=== PATIENT | male | born 1955 | race Caucasian/White ===

== ENCOUNTER 2021-11-29 16:20 | Emergency (ER) | payer MEDICARE ==
[~2021-11-29] VITALS: Ht 182.9 cm; Wt 109.1 kg
[2021-11-29] MEDS ORDERED: SEROQUEL 1100 MG/TAB PO (16:33)
[2021-11-29] MEDS ORDERED: COZAAR100 MG PO (16:34)
[2021-11-29] MEDS ORDERED: PRAVACHOL 40MG40 MG PO (16:34)
[2021-11-29] MEDS ORDERED: GLUCOPHAGE1000 MG PO (16:36)
[2021-11-29 16:49] LABS: HEMATOCRIT 42.7 % (42.0-52.0); HEMOGLOBIN 15.2 g/dl (13.5-18.0); MEAN CELL VOLUME 85 fl (80.0-100.0); MEAN CORPUSCULAR HEMOGLOBIN 30 pg (27-31); MEAN CORPUSCULAR HGB CONC 36 g/dl (33.0-37.0); MEAN PLATELET VOLUME 10.8 fl (7.4-10.4); PLATELET COUNT 197 K/mm3 (130-400); RED BLOOD COUNT 5.03 M/mm3 (4.20-5.60); REDCELL DISTRIBUTION WIDTH-CV 12.5 % (11.5-14.5)
[2021-11-29 17:06] LABS: ALBUMIN 3.8 gm/dL (3.4-4.8); BILIRUBIN,TOTAL 0.7 mg/dL (0.2-1.2); CALCIUM 9.2 mg/dL (8.4-10.2); CREATININE, serum 1.04 mg/dL (0.72-1.25); POTASSIUM 4.5 mmol/L (3.5-4.5)
[2021-11-29 17:07] LABS: BAND 3 % (0-10); BASOPHIL 1 % (0-2); EOSINOPHIL 1 % (0-4); LYMPHOCYTE 28 % (20.0-51.0); NEUTROPHILS 62 % (42.0-75.2); PLATELET ESTIMATE NORMAL (NORMAL)
[2021-11-29 17:09] LABS: TOXIC GRANULATION PRESENT
[2021-11-29 18:08] LABS: COLLECTION METHOD CLEAN CATCH
[2021-11-29] MEDS ORDERED: AMOXICILLIN 8751 TAB PO (18:19)
[2021-11-29 18:32] LABS: MUCOUS Present (NOT PRESENT); PH 5 (5-8); SQUAMOUS EPITHELIAL None Seen /hpf (0-10); URINE APPEARANCE Clear (CLEAR/HAZY); URINE BACTERIA None Seen /hpf (NONE SEEN); URINE BILIRUBIN Negative (NEGATIVE); URINE BLOOD Negative (NEGATIVE); URINE COLOR Yellow (YELLOW); URINE GLUCOSE 3+ (NEGATIVE); URINE KETONE 1+ (NEGATIVE); URINE LEUKOCYTE ESTERASE Negative (NEGATIVE); URINE NITRATE Negative (NEGATIVE); URINE PROTEIN(semi-quant) Negative (NEGATIVE); URINE RBC 0-2 /hpf (0-2); URINE UROBILINOGEN Negative (NEGATIVE)
[2021-11-29 19:00] VITALS: BP 180/104; PULSE 55; TEMP 98
--- NOTE | 2021-11-30 08:59 | NUR ---
The patient notified ED staff that he is unable to afford his insulin. SW attempted to contact the patient with the number on file to address this. SW left him a voicemail.
== END 2021-11-29 19:00 | disposition home or self-care (01) ==
LOC: COL.ER 16:20
PROVIDERS: Emergency Medicine
DX: E11.65 Type 2 diabetes mellitus with hyperglycemia (principal); Z20.822 Contact with and (suspected) exposure to COVID-19; Z79.84 Long term (current) use of oral hypoglycemic drugs; Z79.1 Long term (current) use of non-steroidal anti-inflammatories (NSAID); Z79.891 Long term (current) use of opiate analgesic
CPT/HCPCS: J7120; Q9967

== ENCOUNTER 2022-01-15 22:04 | Emergency (ER) | payer MEDICARE ==
[~2022-01-15] VITALS: Ht 185.4 cm; Wt 106.8 kg
[~2022-01-15 22:04] MED LIST: AMOXICILLIN 8751 TAB PO; COZAAR100 MG PO; GLUCOPHAGE1000 MG PO; PRAVACHOL 40MG40 MG PO; SEROQUEL 1100 MG/TAB PO
[2022-01-15 22:10] VITALS: TEMP 98
[2022-01-15] MEDS ORDERED: VISTARIL 2525 MG/CAP PO (22:15)
[2022-01-15] MEDS ORDERED: DEPAKOTE ER 50500 MG PO (22:15)
[2022-01-15 22:49] LABS: HEMATOCRIT 41.6 % (42.0-52.0); HEMOGLOBIN 14.6 g/dl (13.5-18.0); MEAN CELL VOLUME 82 fl (80.0-100.0); MEAN CORPUSCULAR HEMOGLOBIN 29 pg (27-31); MEAN CORPUSCULAR HGB CONC 35 g/dl (33.0-37.0); MEAN PLATELET VOLUME 10.9 fl (7.4-10.4); PLATELET COUNT 215 K/mm3 (130-400); RED BLOOD COUNT 5.07 M/mm3 (4.20-5.60); REDCELL DISTRIBUTION WIDTH-CV 12.7 % (11.5-14.5)
[2022-01-15 23:00] LABS: ALANINE AMINOTRANSFERASE 20 U/L (0-55); ALBUMIN 3.7 gm/dL (3.4-4.8); ALKALINE PHOSPHATASE 161 U/L (40-150); ANION GAP 12 mmol/L (7-16); AST,SGOT 15 U/L (5-34); BILIRUBIN,TOTAL 0.7 mg/dL (0.2-1.2); BLOOD UREA NITROGEN 29 mg/dL (8-26); CALCIUM 8.9 mg/dL (8.4-10.2); CARBON DIOXIDE 21 mmol/L (23-31); CHLORIDE 93 mmol/L (98-107); CREATININE, serum 1.38 mg/dL (0.72-1.25); POTASSIUM 4.5 mmol/L (3.5-4.5); SODIUM 126 mmol/L (136-145); TOTAL PROTEIN 6.7 gm/dL (6.2-8.1)
[2022-01-15 23:06] LABS: GLUCOSE 728 mg/dL (70-99)
[2022-01-15 23:08] LABS: TROPONIN-I < 0.010 ng/mL (0.00-0.033)
[2022-01-15 23:44] LABS: BASOPHIL 3 % (0-2); EOSINOPHIL 3 % (0-4); LYMPHOCYTE 17 % (20.0-51.0); MYELOCYTE 1 % (0-0); NEUTROPHILS 71 % (42.0-75.2)
[2022-01-16] MEDS ORDERED: DOXYCYCLINE 10100 MG PO (01:11)
[2022-01-16 01:26] VITALS: BP 95/68; PULSE 70
== END 2022-01-16 01:26 | disposition home or self-care (01) ==
LOC: COL.ER 22:04
PROVIDERS: Emergency Medicine
DX: R73.9 Hyperglycemia, unspecified (principal); D72.829 Elevated white blood cell count, unspecified; F31.9 Bipolar disorder, unspecified; Z88.1 Allergy status to other antibiotic agents; Z79.899 Other long term (current) drug therapy
CPT/HCPCS: J1815; J7120

== ENCOUNTER → 2022-01-21 | Outpatient (CLI) | payer MEDICARE ==
[~2022-01-21] MED LIST changes: +AMOXICILLIN875 MG PO; +ASPIRIN E.C. 8181 MG PO; +CIPRODEX OT; +CRESTOR 10MG10 MG PO; +DEPAKOTE ER 50500 MG PO; +DOXYCYCLINE 10100 MG; +DOXYCYCLINE 10100 MG PO; +JARDIANCE25; +LANTUS SOLOS100 U/ML SQ; +LIPITOR 40MG TA40 MG; +LIPITOR 40MG TA40 MG PO; +LIPITOR 80MG80 MG PO; +PLAVIX 75MG TAB75 MG PO; +SEROQUEL300 MG PO; +TOPROL XL 25MG25 MG PO; +VISTARIL 2525 MG/CAP PO; +WELLBUTRIN 75MG75 MG PO
[2022-01-28] VITALS (201 sets, daily range): O2SAT 90–100
== END ==
LOC: ZCOL.LAB 15:43
DX: H92.11 Otorrhea, right ear (principal)

== ENCOUNTER 2022-01-27 01:02 | Observation (INO) | payer MEDICARE ==
[2022-01-27] VITALS (955 sets, daily range): BP systolic 114–145; BP diastolic 76–93; PULSE 78–85; TEMP 97.9–98.5; O2SAT 92–100
[~2022-01-27] VITALS: Ht 182.9 cm; Wt 106.9 kg
[~2022-01-27 01:02] MED LIST changes: -AMOXICILLIN875 MG PO; -ASPIRIN E.C. 8181 MG PO; -CIPRODEX OT; -CRESTOR 10MG10 MG PO; -DOXYCYCLINE 10100 MG; -JARDIANCE25; -LANTUS SOLOS100 U/ML SQ; -LIPITOR 40MG TA40 MG; -LIPITOR 40MG TA40 MG PO; -LIPITOR 80MG80 MG PO; -PLAVIX 75MG TAB75 MG PO; -SEROQUEL300 MG PO; -TOPROL XL 25MG25 MG PO; -WELLBUTRIN 75MG75 MG PO
[2022-01-27 01:45] LABS: HEMATOCRIT 40.4 % (42.0-52.0); HEMOGLOBIN 14.3 g/dl (13.5-18.0); MEAN CELL VOLUME 83 fl (80.0-100.0); MEAN CORPUSCULAR HEMOGLOBIN 29 pg (27-31); MEAN CORPUSCULAR HGB CONC 35 g/dl (33.0-37.0); MEAN PLATELET VOLUME 10.5 fl (7.4-10.4); PLATELET COUNT 179 K/mm3 (130-400); RED BLOOD COUNT 4.86 M/mm3 (4.20-5.60); REDCELL DISTRIBUTION WIDTH-CV 12.7 % (11.5-14.5)
[2022-01-27 01:47] LABS: INR 1.1 (0.8-3.0); PROTHROMBIN TIME 11.9 SECONDS (9.7-12.8)
[2022-01-27 01:57] LABS: BAND 1 % (0-10); NEUTROPHILS 69 % (42.0-75.2)
[2022-01-27 01:58] LABS: COLLECTION METHOD CLEAN CATCH
[2022-01-27 01:58] LABS: ALANINE AMINOTRANSFERASE 19 U/L (0-55); ALBUMIN 3.5 gm/dL (3.4-4.8); ALKALINE PHOSPHATASE 124 U/L (40-150); ANION GAP 16 mmol/L (7-16); AST,SGOT 18 U/L (5-34); BILIRUBIN,TOTAL 0.4 mg/dL (0.2-1.2); BLOOD UREA NITROGEN 30 mg/dL (8-26); C-REACTIVE PROTEIN 0.11 mg/dL (0.00-0.50); CALCIUM 8.5 mg/dL (8.4-10.2); CARBON DIOXIDE 19 mmol/L (23-31); CHLORIDE 98 mmol/L (98-107); CREATININE, serum 1.28 mg/dL (0.72-1.25); LYMPHOCYTE 25 % (20.0-51.0); PLATELET ESTIMATE NORMAL (NORMAL); SODIUM 133 mmol/L (136-145); TOTAL PROTEIN 6.3 gm/dL (6.2-8.1)
[2022-01-27 01:59] LABS: GLUCOSE 405 mg/dL (70-99)
[2022-01-27 02:04] LABS: PH 5 (5-8); SQUAMOUS EPITHELIAL None Seen /hpf (0-10); URINE APPEARANCE Clear (CLEAR/HAZY); URINE BACTERIA None Seen /hpf (NONE SEEN); URINE BILIRUBIN Negative (NEGATIVE); URINE BLOOD Negative (NEGATIVE); URINE COLOR Straw (YELLOW); URINE GLUCOSE 3+ (NEGATIVE); URINE KETONE 1+ (NEGATIVE); URINE LEUKOCYTE ESTERASE Negative (NEGATIVE); URINE NITRATE Negative (NEGATIVE); URINE PROTEIN(semi-quant) Negative (NEGATIVE); URINE RBC None Seen /hpf (0-2); URINE UROBILINOGEN Negative (NEGATIVE)
[2022-01-27 02:07] LABS: TROPONIN-I < 0.010 ng/mL (0.00-0.033)
[2022-01-27] MEDS ORDERED: LIPITOR 40MG TA40 MG PO (02:44)
[2022-01-27] MEDS ORDERED: LIPITOR 40MG TA40 MG (02:56)
[2022-01-27 07:12] LABS: HEMATOCRIT 39.3 % (42.0-52.0); HEMOGLOBIN 13.6 g/dl (13.5-18.0); MEAN CELL VOLUME 84 fl (80.0-100.0); MEAN CORPUSCULAR HEMOGLOBIN 29 pg (27-31); MEAN CORPUSCULAR HGB CONC 35 g/dl (33.0-37.0); MEAN PLATELET VOLUME 10.7 fl (7.4-10.4); PLATELET COUNT 181 K/mm3 (130-400); RED BLOOD COUNT 4.66 M/mm3 (4.20-5.60); REDCELL DISTRIBUTION WIDTH-CV 12.8 % (11.5-14.5)
[2022-01-27 07:25] LABS: CALCIUM 8.3 mg/dL (8.4-10.2); CREATININE, serum 1.12 mg/dL (0.72-1.25); POTASSIUM 4.8 mmol/L (3.5-4.5)
[2022-01-27 07:48] LABS: BAND 3 % (0-10); BASOPHIL 3 % (0-2); LYMPHOCYTE 23 % (20.0-51.0); MYELOCYTE 1 % (0-0); NEUTROPHILS 66 % (42.0-75.2)
[2022-01-27 07:49] LABS: MICROCYTOSIS 1+; PLATELET ESTIMATE NORMAL (NORMAL); POLYCHROMASIA 1+
--- NOTE | 2022-01-27 13:37 | NUR ---
MRI CANCELLED DUE TO PT HAVING COCHLEAR IMPLANT THAT IS NOT MRI COMPATIBLE.
--- NOTE | 2022-01-27 15:26 | NUR ---
encyclopedia research worker met with patient and his sister, to complete initial intake for discharge planning. Patient lives alone and states he is independent with his activities of daily living. Patient states his primary care provider is Dr Simmons and states that he often does not fill his insulin prescription as he cannot afford it. Worker states that he does not have advance directives and worker provided written and verbal information on the durable power of maintenance mechanic 2nd shift for health care and living will. Patient verbalized desire to complete directives and worker/nurse assisted with completion of a living will and durable power of maintenance mechanic 2nd shift for health care. Worker placed a copy on patient's medical record and provided copies to patient's sister. Worker provided financial counselor's information so that patient could explore the possibility of medicaid. Patient plans to return home upon discharge. Discharge plan is home.
--- NOTE | 2022-01-27 15:58 | NUR ---
See merge for all medication, assessment, intervention, and vital sign times.
--- NOTE | 2022-01-27 16:35 | NUR ---
PT ARRIVED BACK FROM [facility]. DENIES PAIN AT THIS TIME. TR BAND IN PLACE WITH 11ML AIR IN BAND. SITE CLEAN AND DRY, NO SIGN OF ACTIVE BLEEDING.
[2022-01-28] VITALS (696 sets, daily range): BP systolic 121–158; BP diastolic 75–98; PULSE 15–90; TEMP 97.7–98.5; O2SAT 87–99
--- NOTE | 2022-01-28 | NUR ---
PATIENT IS NPO AT THIS TIME
[2022-01-28 06:05] LABS: HEMATOCRIT 41.9 % (42.0-52.0); HEMOGLOBIN 14.3 g/dl (13.5-18.0); MEAN CELL VOLUME 86 fl (80.0-100.0); MEAN CORPUSCULAR HEMOGLOBIN 30 pg (27-31); MEAN CORPUSCULAR HGB CONC 34 g/dl (33.0-37.0); MEAN PLATELET VOLUME 10.7 fl (7.4-10.4); PLATELET COUNT 182 K/mm3 (130-400); RED BLOOD COUNT 4.85 M/mm3 (4.20-5.60); REDCELL DISTRIBUTION WIDTH-CV 13.2 % (11.5-14.5)
[2022-01-28 06:12] LABS: INR 1.1 (0.8-3.0); PROTHROMBIN TIME 11.7 SECONDS (9.7-12.8)
[2022-01-28 06:15] LABS: PARTIAL THROMBOPLASTIN TIME 31.8 SECONDS (26.0-37.0)
[2022-01-28 06:23] LABS: CALCIUM 8.2 mg/dL (8.4-10.2); CREATININE, serum 1.06 mg/dL (0.72-1.25); POTASSIUM 4.1 mmol/L (3.5-4.5)
--- NOTE | 2022-01-28 06:45 | NUR ---
PATIENT RESTED WELL THIS SHIFT, DID CALL THIS NURSE TO ROOM AND STATED THAT HE COULD NOT FIND HIS DENTURES, LAST HE SAW THEM THEY WERE ON HIS BEDSIDE TABLE, AFTER SEARCHING ROOM, JASON AND DINNER ANGI TOLD HIM I WOULD HAVE STAFF REACH OUT TO PREVIOUS SHIFT NURSE LATER TODAY, THEN A SHORT TIME LATER PATIENT CALLED AND STATED THAT HIS SISTER HAD TAKEN THEM HOME.
--- NOTE | 2022-01-28 10:18 | NUR ---
Initial visit; Patient and his sister thanked Radio Program Checker for looking in on him and keeping him in her prayers.
--- NOTE | 2022-01-28 10:46 | NUR ---
See merge for all medication, assessment, intervention, and vital sign times.
[2022-01-28] MEDS ORDERED: ASPIRIN E.C. 8181 MG PO (11:10)
[2022-01-28] MEDS ORDERED: CRESTOR 10MG10 MG PO (11:11)
[2022-01-28] MEDS ORDERED: LANTUS SOLOS100 U/ML SQ (11:12)
[2022-01-28] MEDS ORDERED: DOXYCYCLINE 10100 MG (11:12)
[2022-01-28] MEDS ORDERED: JARDIANCE25 (11:12)
[2022-01-28] MEDS ORDERED: WELLBUTRIN 75MG75 MG PO (11:13)
[2022-01-28] MEDS ORDERED: CIPRODEX OT (11:14)
--- NOTE | 2022-01-28 11:23 | NUR ---
Returned to Unit with microbiology lab manager RN's. Patient alert and oriented and in no distress upon arrival. Radial site assessed; soft and non-tender to touch with +2 radial pulses.
[2022-01-28] MEDS ORDERED: SEROQUEL300 MG PO (13:11)
--- NOTE | 2022-01-28 16:03 | NUR ---
Resting in bed; Post cath checks WNL. Denies any concerns at this time.
--- NOTE | 2022-01-28 17:15 | NUR ---
Radial site assessed; +2 pulse noted with <3 cap refill. Slight firmness noted at the border of the TR band with light blue discoloration. Patient not complaining of pain or numbness. 3 ml replaced back into the TR band. Will continue to monitor.
--- NOTE | 2022-01-28 21:33 | NUR ---
Assessment complete and charted. Patient alert and orienated. TR band to right radial. Small hematoma present with no changes from previous assessment. Air was removed and TR off at 0. Tolerated well. Site covered with bandaide.
--- NOTE | 2022-01-28 23:45 | NUR ---
Right radial site, small hematoma, soft with palpation. No changes from previous assessments. Patient denies pain. Call light in reach.
[2022-01-29] VITALS (545 sets, daily range): BP systolic 122–141; BP diastolic 88–103; PULSE 76–82; TEMP 97.7–98.4; O2SAT 82–100
[2022-01-29 06:00] LABS: HEMATOCRIT 44.5 % (42.0-52.0); HEMOGLOBIN 15.1 g/dl (13.5-18.0); MEAN CELL VOLUME 87 fl (80.0-100.0); MEAN CORPUSCULAR HEMOGLOBIN 29 pg (27-31); MEAN CORPUSCULAR HGB CONC 34 g/dl (33.0-37.0); MEAN PLATELET VOLUME 10.3 fl (7.4-10.4); PLATELET COUNT 183 K/mm3 (130-400); RED BLOOD COUNT 5.13 M/mm3 (4.20-5.60); REDCELL DISTRIBUTION WIDTH-CV 13.2 % (11.5-14.5)
[2022-01-29 06:02] LABS: CALCIUM 8.2 mg/dL (8.4-10.2); CREATININE, serum 0.9 mg/dL (0.72-1.25)
--- NOTE | 2022-01-29 06:17 | NUR ---
Patient had uneventful night. Resting in bed this AM. Call light in reach.
--- NOTE | 2022-01-29 07:18 | NUR ---
Report given to ANNA Hyatt
[2022-01-29 07:32] LABS: EOSINOPHIL 2 % (0-4); LYMPHOCYTE 15 % (20.0-51.0); METAMYELOCYTE 2 % (0-0); MYELOCYTE 2 % (0-0); NEUTROPHILS 74 % (42.0-75.2)
[2022-01-29 07:33] LABS: PLATELET ESTIMATE NORMAL (NORMAL)
[2022-01-29] MEDS ORDERED: PLAVIX 75MG TAB75 MG PO (10:45)
[2022-01-29] MEDS ORDERED: LIPITOR 80MG80 MG PO (10:45)
[2022-01-29] MEDS ORDERED: TOPROL XL 25MG25 MG PO ×2 (10:46)
--- NOTE | 2022-01-29 12:48 | NUR ---
Discharge packet provided and reviewed with the patient and family. Post cath care reviewed. Radial site assessed. Slight soft swelling and light bruising noted around the wrist, unchanged since previous assessment. +2 radial pulse noted with no pain or numbness. Patient alert and oriented and in no distress upon discharge.
[2022-01-30 09:00] LABS: PATHOLOGY DIFF REVIEW OK
== END 2022-01-29 12:48 | disposition home or self-care (01) ==
LOC: COL.ER 01:02 → ICU 03:09
PROVIDERS: Emergency Medicine; Student in an Organized Health Care Education/Training Program; ADMIT Family Medicine
DX: R47.81 Slurred speech (principal); R20.0 Anesthesia of skin; R07.89 Other chest pain; R06.02 Shortness of breath; I25.110 Atherosclerotic heart disease of native coronary artery with unstable angina pectoris; I10 Essential (primary) hypertension; R53.1 Weakness; R91.8 Other nonspecific abnormal finding of lung field; R06.01 Orthopnea; E11.65 Type 2 diabetes mellitus with hyperglycemia; H66.91 Otitis media, unspecified, right ear; B49 Unspecified mycosis; Z66 Do not resuscitate; F31.9 Bipolar disorder, unspecified; I08.1 Rheumatic disorders of both mitral and tricuspid valves; F41.9 Anxiety disorder, unspecified; R16.2 Hepatomegaly with splenomegaly, not elsewhere classified; Z79.4 Long term (current) use of insulin; Z79.899 Other long term (current) drug therapy; Z79.84 Long term (current) use of oral hypoglycemic drugs
CPT/HCPCS: 99232-AI; 99239; C1769; C1874; C1887; C9600; G0378; J0583; J0690; J1644; J1650; J1815; J2250; J3010; J7030; Q9967

== ENCOUNTER 2022-01-30 02:04 | Inpatient (IN) | payer MEDICARE ==
[~2022-01-30] VITALS: Ht 185.4 cm; Wt 108.4 kg
[2022-01-30] VITALS (516 sets, daily range): BP systolic 112–138; BP diastolic 67–76; PULSE 60–72; TEMP 96.8–97.9; O2SAT 92–100
[~2022-01-30 02:04] MED LIST changes: +ASPIRIN E.C. 8181 MG PO; +CIPRODEX OT; +CRESTOR 10MG10 MG PO; +DOXYCYCLINE 10100 MG; +JARDIANCE25; +LANTUS SOLOS100 U/ML SQ; +LIPITOR 40MG TA40 MG; +LIPITOR 40MG TA40 MG PO; +LIPITOR 80MG80 MG PO; +PLAVIX 75MG TAB75 MG PO; +SEROQUEL300 MG PO; +TOPROL XL 25MG25 MG PO; +WELLBUTRIN 75MG75 MG PO
[2022-01-30 02:41] LABS: HEMATOCRIT 37.7 % (42.0-52.0); MEAN CELL VOLUME 85 fl (80.0-100.0); MEAN CORPUSCULAR HEMOGLOBIN 29 pg (27-31); MEAN CORPUSCULAR HGB CONC 35 g/dl (33.0-37.0); MEAN PLATELET VOLUME 10.1 fl (7.4-10.4); PLATELET COUNT 191 K/mm3 (130-400); RED BLOOD COUNT 4.44 M/mm3 (4.20-5.60); REDCELL DISTRIBUTION WIDTH-CV 13.2 % (11.5-14.5)
[2022-01-30 02:54] LABS: ALBUMIN 3.3 gm/dL (3.4-4.8); BILIRUBIN,TOTAL 0.7 mg/dL (0.2-1.2); CREATININE, serum 1.08 mg/dL (0.72-1.25); POTASSIUM 4.6 mmol/L (3.5-4.5); TOTAL PROTEIN 5.9 gm/dL (6.2-8.1)
[2022-01-30 03:00] LABS: BASOPHIL 1 % (0-2); LYMPHOCYTE 13 % (20.0-51.0); MYELOCYTE 1 % (0-0); NEUTROPHILS 82 % (42.0-75.2); TROPONIN-I 0.025 ng/mL (0.00-0.033)
[2022-01-30 03:01] LABS: PLATELET ESTIMATE NORMAL (NORMAL)
[2022-01-30 05:48] LABS: COLLECTION METHOD CLEAN CATCH
[2022-01-30 06:01] LABS: MUCOUS Present (NOT PRESENT); PH 5 (5-8); SQUAMOUS EPITHELIAL 0-2 /hpf (0-10); URINE APPEARANCE Clear (CLEAR/HAZY); URINE BACTERIA None Seen /hpf (NONE SEEN); URINE BILIRUBIN Negative (NEGATIVE); URINE BLOOD Negative (NEGATIVE); URINE COLOR Yellow (YELLOW); URINE GLUCOSE 3+ (NEGATIVE); URINE KETONE 1+ (NEGATIVE); URINE LEUKOCYTE ESTERASE Negative (NEGATIVE); URINE NITRATE Negative (NEGATIVE); URINE PROTEIN(semi-quant) Negative (NEGATIVE); URINE RBC None Seen /hpf (0-2); URINE UROBILINOGEN Negative (NEGATIVE)
--- NOTE | 2022-01-30 23:00 | NUR ---
ASSUMED CARE OF PATIENT AFTER RECEIVING BEDSIDE REPORT. ASSESSMENT COMPLETED, VSS. OXYGEN REMOVED. PATIENT REFUSED BATH. TRANSFER ORDERS RECEIVED. REPORT CALLED TO MEDICAL UNIT RN. PATIENT BELONGINGS GATHERED AND SENT WITH PATIENT. PATIENT ESCORTED TO [facility] VIA WHEELCHAIR BY MEDICAL FLOOR PCT,
--- NOTE | 2022-01-31 00:23 | NUR ---
PATIENT UP TO ROOM 309 VIA WHEELCHAIR BY [facility] A[facility]O X4. VSS. MED RX REVIEWED. SHIFT ASSESSMENT COMPLETED. C/O L SHOULDER ACHING PAIN, PRN TYLENOL GIVEN. DENIES ADDITIONAL NEEDS. CALL LIGHT IN REACH.
[2022-01-31 03:37] VITALS: BP 130/73; PULSE 62; TEMP 97.8
[2022-01-31 06:41] LABS: HEMOGLOBIN 12.1 g/dl (13.5-18.0); MEAN CELL VOLUME 86 fl (80.0-100.0); MEAN CORPUSCULAR HEMOGLOBIN 29 pg (27-31); MEAN CORPUSCULAR HGB CONC 33 g/dl (33.0-37.0); MEAN PLATELET VOLUME 10.4 fl (7.4-10.4); PLATELET COUNT 184 K/mm3 (130-400); REDCELL DISTRIBUTION WIDTH-CV 13.7 % (11.5-14.5)
[2022-01-31 06:45] LABS: HEMATOCRIT 36.2 % (42.0-52.0)
[2022-01-31 07:08] LABS: CALCIUM 7.7 mg/dL (8.4-10.2); CREATININE, serum 0.77 mg/dL (0.72-1.25); MAGNESIUM 2.1 mg/dL (1.6-2.6); POTASSIUM 3.8 mmol/L (3.5-4.5)
[2022-01-31 07:13] LABS: METAMYELOCYTE 1 % (0-0); PLATELET ESTIMATE NORMAL (NORMAL)
[2022-01-31 07:15] LABS: BAND 4 % (0-10); BASOPHIL 3 % (0-2); EOSINOPHIL 7 % (0-4); LYMPHOCYTE 20 % (20.0-51.0); MYELOCYTE 4 % (0-0); NEUTROPHILS 59 % (42.0-75.2)
[2022-01-31 07:18] LABS: TROPONIN-I 0.128 ng/mL (0.00-0.033)
[2022-01-31 07:32] VITALS: BP 138/76; PULSE 56; TEMP 97.1
--- NOTE | 2022-01-31 08:00 | NUR ---
Patient laying in bed, A&Ox4. VSS. IV CDI, fluids infusing. Denies pain and discomfort. Call light within reach
[2022-01-31 11:30] VITALS: BP 146/80; PULSE 64; TEMP 98.1
[2022-01-31 13:18] LABS: HEMATOCRIT 38.2 % (42.0-52.0); HEMOGLOBIN 13.1 g/dl (13.5-18.0); MEAN CELL VOLUME 86 fl (80.0-100.0); MEAN CORPUSCULAR HEMOGLOBIN 30 pg (27-31); MEAN CORPUSCULAR HGB CONC 34 g/dl (33.0-37.0); MEAN PLATELET VOLUME 10.2 fl (7.4-10.4); PLATELET COUNT 196 K/mm3 (130-400); RED BLOOD COUNT 4.44 M/mm3 (4.20-5.60); REDCELL DISTRIBUTION WIDTH-CV 13.6 % (11.5-14.5)
[2022-01-31 13:28] LABS: INR 1.1 (0.8-3.0); PROTHROMBIN TIME 12.3 SECONDS (9.7-12.8)
[2022-01-31 13:31] LABS: PARTIAL THROMBOPLASTIN TIME 36.8 SECONDS (26.0-37.0)
[2022-01-31 13:38] LABS: CALCIUM 7.9 mg/dL (8.4-10.2); CREATININE, serum 0.87 mg/dL (0.72-1.25); POTASSIUM 4.9 mmol/L (3.5-4.5)
--- NOTE | 2022-01-31 13:52 | NUR ---
SW met with patient to complete intake. Patient states that he lives in [facility] alone. Next of kin he states is his sisters Emerald [phone] and Ancelmo [phone]. Patient states that he does not utiliz DME, independent with ADL's and does not utilize any HH services at this time. PCP is Dr. Donohue, pharmacy is [facility], and does not have anyone appointed as his DPOA/HC that he can recall. Patient states that his plan is to return to his home upon DC. SW will continue to follow. DC plan: Home
--- NOTE | 2022-01-31 14:15 | NUR ---
PT USES CALL LIGHT, STATES THAT HE IS BLEEDING EVERYWHERE. WHEN THIS NURSE ENTERS ROOM, PT'S IV IN RIGHT HAND IS BLEEDING ET DRIPPING ONTO FLOOR. PERIPHERAL IV/INT IS DCED. PT STATES THAT HE HAD BUMPED HIS RIGHT HAND INTO THE BED RAIL. PT'S URINAL IS EMPTIED, URINE IS YELLOW ET CLEAR. IVF INFUSING INTO RIGHT AC. PT DENIES PAIN BUT STATES THAT HE IS FEELING A LITTLE BIT SOB, BELIEVES IT TO BE ANXIETY RELATED. PT DENIES NEEDS. CALL LIGHT WITHIN REACH.
[2022-01-31 15:18] VITALS: BP 148/78; PULSE 65; TEMP 98
[2022-01-31 20:23] VITALS: BP 153/80; PULSE 67; TEMP 98
--- NOTE | 2022-01-31 23:30 | NUR ---
Pt alert and oriented this evening, resting in bed. Denies acute pain, but did report some intermittent "chest tightness" in the right upper chest. Described the pain as "stabbing", but stated it had subsided. No complaints of pain since. No SOB. Pt remains on room air. Pt will be NPO at 0000 for procedure tomorrow. Shift assessment performed. Medications administered per orders and education provided. Pt tolerated PO medications well. NS continues at a ordered rate of 75 ml/hr, pt tolerating well. No edema or crackles noted. No significant skin issues. Abdomen rounded, but soft. No pain to palpation. Adequate urine output. VS stable. Blood sugar was 199 this evening. NSR. Pt reports no questions, will continue to monitor.
[2022-02-01] VITALS (13 sets, daily range): BP systolic 129–159; BP diastolic 74–106; PULSE 57–67; TEMP 97.6–98.8
--- NOTE | 2022-02-01 05:09 | NUR ---
No adverse events overnight. Pt resting, but is alert and oriented when awoken. Pt does not report any chest pain or SOB this morning. VS remain stable. BP runs a little elevated. HR ran from NSR to sinus yariel overnight. IV fluids continue, no new signs of edema or abnormal lung sounds. Pt remains on room air. NPO since 0000. Adequate UO overnight. Pt does not report any questions, will continue to monitor.
[2022-02-01 06:11] LABS: HEMATOCRIT 39.1 % (42.0-52.0); HEMOGLOBIN 12.9 g/dl (13.5-18.0); MEAN CELL VOLUME 88 fl (80.0-100.0); MEAN CORPUSCULAR HEMOGLOBIN 29 pg (27-31); MEAN CORPUSCULAR HGB CONC 33 g/dl (33.0-37.0); MEAN PLATELET VOLUME 10.2 fl (7.4-10.4); PLATELET COUNT 207 K/mm3 (130-400); RED BLOOD COUNT 4.45 M/mm3 (4.20-5.60); REDCELL DISTRIBUTION WIDTH-CV 13.5 % (11.5-14.5)
[2022-02-01 06:24] LABS: CALCIUM 7.9 mg/dL (8.4-10.2); CREATININE, serum 0.85 mg/dL (0.72-1.25); POTASSIUM 3.9 mmol/L (3.5-4.5)
[2022-02-01 06:49] LABS: BAND 2 % (0-10); BASOPHIL 1 % (0-2); EOSINOPHIL 10 % (0-4); LYMPHOCYTE 21 % (20.0-51.0); MYELOCYTE 4 % (0-0); NEUTROPHILS 55 % (42.0-75.2)
[2022-02-01 06:50] LABS: TEAR DROP CELLS 1+
--- NOTE | 2022-02-01 08:35 | NUR ---
Patient sitting in bed upon entering the room. Patient A&Ox4 and SBA. Patient is to have a cardiac cath today. Consent already signed and on the chart. Patient denies any concerns. Call light is w/in reach.
--- NOTE | 2022-02-01 12:31 | NUR ---
First visit from the hemming and tacking machine operator. No needs right now.
--- NOTE | 2022-02-01 15:07 | NUR ---
See merge for all medication, assessment, intervention, vital signs times. Moderate sedation assessment completed prior to case start, documented during case.
--- NOTE | 2022-02-01 15:19 | NUR ---
Patient taken down for cardiac cath. Austin called from [employer] to give this RN report. Patient will be coming back up shortly.
[2022-02-01] MEDS ORDERED: TOPROL XL 25MG25 MG PO (15:34)
[2022-02-01] MEDS ORDERED: AMOXICILLIN875 MG PO (15:35)
--- NOTE | 2022-02-01 15:48 | NUR ---
Patient back from cardiac cath. Patient A&Ox4 and appears to be doing well. This RN stood by while the patient walked to the bathroom. Patient did well and was steady on his feet. Patient denies any pain, SOB, nausea, or dizziness. Patient requesting supper. Plan at this time is for patient to discharge after 4hrs of VS for post-cath. Family is at the bedside and all questions asked were answered. Patient currently hooked up to the dynamap for VS; [id number], [id number], and 2x1hr.
--- NOTE | 2022-02-01 19:53 | NUR ---
Patient is resting in bed, alert and oriented x 4, VSS. at the bedside. Radial compression band still in place, 3 ml /14 still left. Denies pain, dizziness, or other discomfort. Regular pulses. Assessment completed. VSS monitoring. No other needs at this time. Call light within reach.
--- NOTE | 2022-02-01 20:28 | NUR ---
Called Karina COLLINS to confirm DC of patient. VSS. Radial band removed. No bleeding. Band aid applied. Discharge instructions provided. All questions ansered. IVs righ and left removed. PPW signed. Patient preparing to leave with .
== END 2022-02-01 20:20 | disposition home or self-care (01) | DRG 280 ==
LOC: COL.ER 02:04 → MEDICAL 03:26 → ICU 03:26 → MEDICAL 22:51
PROVIDERS: Family Medicine; Internal Medicine; Internal Medicine Cardiovascular Disease; Student in an Organized Health Care Education/Training Program; ADMIT Student in an Organized Health Care Education/Training Program
PROC: 4A023N7 Measurement of Cardiac Sampling and Pressure, Left Heart, Percutaneous Approach (ICD-10-PCS; principal; 2022-02-01)
PROC: B2111ZZ Fluoroscopy of Multiple Coronary Arteries using Low Osmolar Contrast (ICD-10-PCS; 2022-02-01)
DX: I95.9 Hypotension, unspecified (principal); J96.01 Acute respiratory failure with hypoxia; I21.A1 Myocardial infarction type 2; R07.9 Chest pain, unspecified; I25.10 Atherosclerotic heart disease of native coronary artery without angina pectoris; I10 Essential (primary) hypertension; F41.9 Anxiety disorder, unspecified; Z66 Do not resuscitate; F31.9 Bipolar disorder, unspecified; E11.65 Type 2 diabetes mellitus with hyperglycemia; K59.00 Constipation, unspecified; D72.829 Elevated white blood cell count, unspecified; B96.20 Unspecified Escherichia coli [E. coli] as the cause of diseases classified elsewhere; Z95.5 Presence of coronary angioplasty implant and graft; Z86.73 Personal history of transient ischemic attack (TIA), and cerebral infarction without residual deficits; Z79.02 Long term (current) use of antithrombotics/antiplatelets; Z79.82 Long term (current) use of aspirin; Z79.4 Long term (current) use of insulin; Z20.822 Contact with and (suspected) exposure to COVID-19; Z23 Encounter for immunization
CPT/HCPCS: 99232-AI; J0696; J1644; J1650; J1815; J2250; J2543; J3010; J7030; J7040; J7060

== ENCOUNTER 2022-02-17 16:24 | Outpatient (RCR) | payer MEDICARE ==
[~2022-02-17 16:24] MED LIST changes: +AMOXICILLIN875 MG PO
== END 2022-03-02 | disposition home or self-care (01) ==
LOC: COL.CR
DX: Z48.812 Encounter for surgical aftercare following surgery on the circulatory system (principal); Z95.5 Presence of coronary angioplasty implant and graft

== ENCOUNTER → 2022-03-23 | Outpatient (CLI) | payer MEDICARE | LOC: ZCOL.LAB 20:54 | DX: H92.11 Otorrhea, right ear (principal) ==

== ENCOUNTER 2022-03-29 15:31 | Outpatient (RCR) | payer MEDICARE | END 2022-04-01 | disposition home or self-care (01) | LOC: COL.CR | DX: Z48.812 Encounter for surgical aftercare following surgery on the circulatory system (principal); Z95.5 Presence of coronary angioplasty implant and graft ==

== ENCOUNTER 2022-04-30 14:47 | Outpatient (RCR) | payer MEDICARE | END 2022-05-02 | disposition home or self-care (01) | LOC: COL.CR | DX: Z48.812 Encounter for surgical aftercare following surgery on the circulatory system (principal); Z95.5 Presence of coronary angioplasty implant and graft ==

== ENCOUNTER → 2022-05-19 | Outpatient (CLI) | payer MEDICARE | LOC: DIA.ED 07:56 | DX: E11.65 Type 2 diabetes mellitus with hyperglycemia (principal); E11.40 Type 2 diabetes mellitus with diabetic neuropathy, unspecified; E78.5 Hyperlipidemia, unspecified; I10 Essential (primary) hypertension; Z79.4 Long term (current) use of insulin | CPT/HCPCS: G0108 ==

== ENCOUNTER 2022-05-26 15:27 | Outpatient (RCR) | payer MEDICARE | END 2022-06-02 | disposition home or self-care (01) | LOC: COL.CR | DX: Z48.812 Encounter for surgical aftercare following surgery on the circulatory system (principal); Z95.5 Presence of coronary angioplasty implant and graft ==

== ENCOUNTER 2022-06-21 15:07 | Outpatient (RCR) | payer MEDICARE | END 2022-06-23 15:21 | disposition home or self-care (01) | LOC: COL.CR 15:07 | DX: Z48.812 Encounter for surgical aftercare following surgery on the circulatory system (principal); Z95.5 Presence of coronary angioplasty implant and graft ==

== ENCOUNTER → 2022-08-16 | Outpatient (CLI) | payer MEDICARE | LOC: DIA.ED 13:27 | DX: E11.65 Type 2 diabetes mellitus with hyperglycemia (principal); Z79.4 Long term (current) use of insulin; E78.5 Hyperlipidemia, unspecified; I10 Essential (primary) hypertension ==

== ENCOUNTER → 2024-05-28 | Outpatient (CLI) | payer BC ==
[~2024-05-28] MED LIST changes: +Iohexol 300 - 100 ML VIAL IV ONE; +NS 100 ML IV SCH
== END ==
LOC: COL.RAD 09:41
DX: G31.9 Degenerative disease of nervous system, unspecified (principal); I67.82 Cerebral ischemia; R40.20 Unspecified coma; Z96.21 Cochlear implant status
CPT/HCPCS: Q9967